=== PATIENT | female | born 1965 | race Caucasian/White ===

== ENCOUNTER 2018-12-26 11:20 | Day surgery (SDC) | payer OTHER ==
[2018-12-25 10:05] VITALS: BMI 23.9
--- NOTE | 2018-12-26 09:52 | HP ---
HISTORY OF PRESENT ILLNESS: This is a 53-year-old female comes for a colonoscopy for colon cancer screening. The patient constipation. No history of any abdominal pain. No rectal bleeding. No relevant history. ALLERGIES: PENICILLIN. SOCIAL HISTORY: The patient is a former smoker. She does not drink alcohol. MEDICAL ILLNESS: 1. Hyperlipidemia. 2. Chronic acid reflux. 3. Chronic kidney disease, stage 3. PAST SURGICAL HISTORY: Hysterectomy and oophorectomy. PHYSICAL EXAMINATION: VITAL SIGNS: Pulse is 73, blood pressure is 120/76_. HEENT: Conjunctivae are clear. CARDIOVASCULAR SYSTEM: First and second heart sounds are normal. LUNGS: Clear to auscultation. ABDOMEN: Soft. No organomegaly. No tenderness. No masses. ADMITTING DIAGNOSIS: A 53-year-old female comes for a colonoscopy for colon cancer screening. Job ID: [id number] MTDD
--- NOTE | 2018-12-26 19:21 | OP ---
DATE OF PROCEDURE: 12/26/2018 OPERATIVE PROCEDURE: Colonoscopy. PREOPERATIVE DIAGNOSIS: A 53-year-old female, undergoing colonoscopy for colon cancer screening. POSTOPERATIVE DIAGNOSIS: Normal colonoscopy. DESCRIPTION OF PROCEDURE: The patient was placed on her left lateral position and was given sedation by Anesthesia Department. A rectal exam was done before the scope was advanced into the rectum. No lesions felt on rectal exam. A [employer] video colonoscope was introduced into the rectum and advanced all the way into the cecum. The prep was very good. The mucosa appears normal throughout the colon with normal vascular pattern. In the appendiceal orifice, ileocecal valve, and cecum, no pathology seen. Withdrawal of scope from the cecum to ascending colon, hepatic flexure, no pathology seen. In the transverse colon, splenic flexure, descending colon, sigmoid colon, no lesion seen. Retroflexion of scope in the rectum showed no pathology. DISCHARGE PLANNING: This is a 53-year-old female, came for a colonoscopy for colon cancer screening. The colonoscopy showed no pathology. DISCHARGE RECOMMENDATIONS: 1. The patient advised to call me if she develops abdominal pain, hematochezia. 2. In the absence of any of the above symptoms, she will come back to me in 2 weeks. Job ID: [id number]
== END 2018-12-26 15:45 | disposition home or self-care (01) ==
LOC: SDC 11:20
PROVIDERS: ATTEND Internal Medicine Gastroenterology
PROC: 0DJD8ZZ Inspection of Lower Intestinal Tract, Via Natural or Artificial Opening Endoscopic (ICD-10-PCS; principal; 2018-12-26)
DX: Z12.11 Encounter for screening for malignant neoplasm of colon (principal); E78.5 Hyperlipidemia, unspecified; K21.9 Gastro-esophageal reflux disease without esophagitis; N18.3 Chronic kidney disease, stage 3 (moderate); Z87.891 Personal history of nicotine dependence; Z88.0 Allergy status to penicillin